=== PATIENT | male | born 1955 | race Caucasian/White ===

== ENCOUNTER 2018-09-21 09:28 | Outpatient (CLI) | payer BC ==
[2018-09-21 10:09] LABS: Anion Gap 13 mmol/L (10-20); BUN (Urea Nitrogen) 17 mg/dL (8.4-25.7); Calc. Creatinine Clearance 0 mL/min (70-130); Calcium 10.2 mg/dL (7.8-10.44); Carbon Dioxide 29 mmol/L (23-31); Chloride 103 mmol/L (98-107); Estimated GFR-MDRD 78; Glucose 78 mg/dL (80-115); Potassium 3.9 mmol/L (3.5-5.1); Sodium 141 mmol/L (136-145)
[2018-09-21 10:10] LABS: Hemoglobin 13.8 g/dL (14.0-18.0); Mean Corpuscular HGB CONC 35.3 g/dL (32.0-36.0); Mean Corpuscular Hemoglobin 29.6 pg (27.0-31.0); Mean Corpuscular Volume 83.9 fL (78.0-98.0); Mean Platelet Volume 8.5 fL (7.4-10.4); Platelet Count 225 thou/uL (130-400); RBC Distribution Width 11.3 % (11.5-14.5); Red Blood Cell (RBC) Count 4.67 mill/uL (4.70-6.10); White Blood Cell (WBC) Count 6.3 thou/uL (4.8-10.8)
== END 2018-09-21 09:29 | disposition home or self-care (01) ==
LOC: BUREKG 09:28
PROVIDERS: ATTEND Ophthalmology
DX: Z01.818 Encounter for other preprocedural examination (principal); H25.12 Age-related nuclear cataract, left eye
CPT/HCPCS: 36415; 80048; 85027; 93005; 93010

== ENCOUNTER 2020-10-20 06:21 | Emergency (ER) | payer BC, SELFPAY ==
[2020-10-20 07:01] LABS: #Basophils 0.1 thou/uL (0.0-0.2); #Eosinphils 0.4 thou/uL (0.0-0.7); #Lymphocytes 1.4 thou/uL (1.20-3.40); #Monocytes 0.6 thou/uL (0.11-0.59); #Neutrophils 10.4 thou/uL (1.40-6.50); %Basophils 0.7 % (0.0-1.0); %Eosinophils 2.8 % (0.0-10.0); %Lymphocytes 10.7 % (21.0-51.0); %Neutrophils 80.8 % (42.0-75.0); Hemoglobin 14.7 g/dL (14.0-18.0); Mean Corpuscular HGB CONC 33.9 g/dL (32.0-36.0); Mean Corpuscular Hemoglobin 30.2 pg (27.0-31.0); Mean Platelet Volume 8.6 fL (7.4-10.4); Platelet Count 210 thou/uL (130-400); RBC Distribution Width 11.4 % (11.5-14.5); Red Blood Cell (RBC) Count 4.85 mill/uL (4.70-6.10); White Blood Cell (WBC) Count 12.9 thou/uL (4.8-10.8)
[2020-10-20 07:15] LABS: ALT (SGPT) 16 U/L (8-55); AST (SGOT) 20 U/L (5-34); Albumin 4.4 g/dL (3.4-4.8); Alkaline Phosphatase 90 U/L (40-110); Anion Gap 17 mmol/L (10-20); BUN (Urea Nitrogen) 15 mg/dL (8.4-25.7); Bilirubin, Total 0.5 mg/dL (0.2-1.2); Calc. Creatinine Clearance 0 mL/min (70-130); Calcium 9.2 mg/dL (7.8-10.44); Carbon Dioxide 23 mmol/L (23-31); Chloride 103 mmol/L (98-107); Glucose 154 mg/dL (80-115); Potassium 3.2 mmol/L (3.5-5.1); Protein, Total 6.4 g/dL (5.8-8.1); Sodium 140 mmol/L (136-145)
[2020-10-20] MEDS ORDERED: Morphine 2 MG/ML VIAL ONE (07:23)
[2020-10-20] MEDS ORDERED: Morphine 4 MG/ML VIAL ONE (07:24)
[2020-10-20] MEDS ORDERED: Metoclopramide HCl 10 MG/2 ML VIAL ONE (07:24)
[2020-10-20] MEDS ORDERED: Ondansetron PF 4 MG/2 ML Vial ONE (09:00)
--- NOTE | 2020-10-20 09:35 | CT ---
CT ABDOMEN AND PELVIS WITHOUT CONTRAST: HISTORY: Nausea, vomiting, epigastric pain. COMPARISON: None. FINDINGS: Absence of oral and IV contrast reduces the sensitivity of the exam, particularly for evaluation of s olid organs involved. The lung bases are clear. The patient is post cholecystectomy. No free air or free fluid is seen in the abdomen or pelvis. A small hiatal hernia is present. The small bowel loops are not abnormally dilated. There is fecal material in the colon. No calculi are seen in the kidneys, ureters, or the urinary bladder. No hydroureteral nephrosis seen on either side. There is a 1 cm exophytic cyst arising from the superior pole of the left kidney. There is a solid-appearing partially exophytic 2 cm solid-appearing mass arising from the right renal cortex. The prostate is enlarged. There are vascular calcifications without evidence of aneurysmal dilatation of the abdominal aorta. There are degenerative changes in the spine. There is an 8 mm hypodense mass arising from the inferio r pole of the right kidney. IMPRESSION: 1. No CT evidence of urinary tract calculi or obstruction. 2. Left renal cyst. 3. Right-sided 2 cm solid-appearing adrenal mass. The possibility of malignancy should be considere d. Further evaluation with CT scan with IV contrast using the urography/adrenal mass protocol is rec ommended. 4. Indeterminate hyperdense 8 mm mass arising from the inferior pole of the right kidney. 5. Prostatic enlargement. 6. Constipation. 7. Small hiatal hernia. POS: [facility]
[2020-10-20 09:56] LABS: Lactic Acid 3.9 mmol/L (0.5-2.2)
[2020-10-20 09:59] LABS: Bilirubin Negative (Negative); Blood, Urine Negative (Negative); Clarity Slightly Cloudy (Clear); Glucose, Urine (Dipstick) Negative (Negative); Ketone, Urine Trace mg/dL (Negative); Leukocyte Negative (Negative); Nitrite Negative (Negative); Protein, Urine (Dipstick) Negative (Neg-Trace); pH, Urine 8.5 (5.0-9.0)
== END 2020-10-20 11:00 | disposition home or self-care (01) ==
LOC: BURERS 06:21
DX: K59.00 Constipation, unspecified (principal); D49.511 Neoplasm of unspecified behavior of right kidney
CPT/HCPCS: 36415; 74176; 80053; 81003; 83605; 83690; 84484; 85025; 93005; 96374; 96375; J2270; J2405; J2765

== ENCOUNTER 2021-01-25 08:56 | Outpatient (CLI) | payer MEDICARE | END 2021-01-25 08:57 | disposition home or self-care (01) | LOC: BURCT 08:56 | PROVIDERS: ATTEND Family Medicine | DX: N28.89 Other specified disorders of kidney and ureter (principal); N40.0 Benign prostatic hyperplasia without lower urinary tract symptoms; K59.00 Constipation, unspecified | CPT/HCPCS: 74177 ==

== ENCOUNTER 2022-06-03 10:17 | Outpatient (CLI) | payer MEDICARE | END 2022-06-03 10:18 | disposition home or self-care (01) | LOC: BURRAD 10:17 | PROVIDERS: ATTEND Family Medicine | DX: M54.50 Low back pain, unspecified (principal) | CPT/HCPCS: 72110; 72202 ==

== ENCOUNTER 2024-08-05 09:25 | Emergency (ER) | payer MEDICARE, OTHER ==
[2024-08-05] MEDS ORDERED: Ondansetron PF 4 MG/2 ML Vial ONE (09:45)
[2024-08-05] MEDS ORDERED: Ketorolac Tromethamine 30 MG (1 mL) VIAL ONE (09:45)
[2024-08-05] MEDS ORDERED: Pantoprazole 40 MG VIAL ONE (09:58)
[2024-08-05] MEDS ORDERED: Dicyclomine 20 MG TAB ONE (09:58)
[2024-08-05 10:07] LABS: Band 5 % (5-11); Eosinophils 1 % (0-10); Hematocrit 35.2 % (42.0-52.0); Hemoglobin 11.9 g/dL (14.0-18.0); Lymphocytes 2 % (21-51); MDiff Complete? YES; Mean Corpuscular HGB CONC 33.8 g/dL (32.0-36.0); Mean Corpuscular Hemoglobin 30.3 pg (27.0-31.0); Mean Corpuscular Volume 89.5 fl (78.0-98.0); Mean Platelet Volume 7.2 fL (7.4-10.4); Monocytes 1 % (0-10); Neutrophil 91 % (42-75); Platelet Adequacy Comment Appears Decreased; Platelet Count 104 10x3/uL (130-400); RBC Distribution Width 11.1 % (11.5-14.5); Red Blood Cell (RBC) Count 3.93 mill/uL (4.70-6.10); White Blood Cell (WBC) Count 4.2 10x3/uL (4.8-10.8)
[2024-08-05 10:12] LABS: ALT (SGPT) 37 U/L (8-55); AST (SGOT) 37 U/L (5-34); Albumin 3.6 g/dL (3.4-4.8); Alkaline Phosphatase 104 U/L (40-110); Anion Gap 11 mmol/L (10-20); BUN (Urea Nitrogen) 23 mg/dL (8.4-25.7); Bilirubin, Total 1.6 mg/dL (0.2-1.2); Calc. Creatinine Clearance 0 mL/min (70-130); Calcium 9.1 mg/dL (7.8-10.44); Carbon Dioxide 23 mmol/L (23-31); Chloride 105 mmol/L (98-107); Estimated GFR 45; Globulin 2.6 g/dL (2.4-3.5); Glucose 99 mg/dL (80-115); Lipase 119 U/L (8-78); Potassium 3.7 mmol/L (3.5-5.1); Protein, Total 6.2 g/dL (5.8-8.1); Sodium 135 mmol/L (136-145)
[2024-08-06 03:01] LABS: Campy jejuni + coli by PCR Negative (Negative); STEC Shiga Toxin 1+2 Negative (Negative); Salmonella spp. by PCR Negative (Negative); Shigella spp + EIEC by PCR Negative (Negative)
== END 2024-08-05 10:51 | disposition home or self-care (01) ==
LOC: BURERS 09:25
DX: A08.4 Viral intestinal infection, unspecified (principal); K85.90 Acute pancreatitis without necrosis or infection, unspecified
CPT/HCPCS: 80053; 83690; 85025; 87505; 96361; 96374; 96375; J1885; J2405; J2470

== ENCOUNTER 2025-09-12 19:46 | Emergency (ER) | payer MEDICARE, OTHER ==
[~2025-09-12 19:46] MED LIST: Iopamidol 370 76% 100 ML VIAL ONE
[2025-09-12 20:38] LABS: #Basophils 0.0 thou/uL (0.0-0.2); #Eosinophils 0.1 thou/uL (0.0-0.7); #Lymphocytes 1.1 thou/uL (1.20-3.40); #Monocytes 0.1 thou/uL (0.11-0.59); #Neutrophils 5.1 thou/uL (1.40-6.50); %Basophils 0.7 % (0.0-1.0); %Eosinophils 1.2 % (0.0-10.0); %Lymphocytes 17.6 % (21.0-51.0); %Monocytes 1.1 % (0.0-10.0); %Neutrophils 79.5 % (42.0-75.0); Hematocrit 38.0 % (42.0-52.0); Hemoglobin 12.6 g/dL (14.0-18.0); Mean Corpuscular Hemoglobin 30.1 pg (27.0-31.0); Mean Corpuscular Volume 91.2 fl (78.0-98.0); Platelet Count 130 10x3/uL (130-400); Red Blood Cell (RBC) Count 4.17 mill/uL (4.70-6.10); White Blood Cell (WBC) Count 6.4 10x3/uL (4.8-10.8)
[2025-09-12 20:51] LABS: ALT (SGPT) 15 U/L (Less than 45); AST (SGOT) 22 U/L (11-34); Albumin 3.8 g/dL (3.1-4.5); Alkaline Phosphatase 68 U/L (40-110); Anion Gap 17 mmol/L (10-20); BUN (Urea Nitrogen) 23 mg/dL (8.4-25.7); Bilirubin, Total 0.7 mg/dL (0.3-1.2); Calc. Creatinine Clearance 0 mL/min (70-130); Calcium 8.9 mg/dL (7.8-10.44); Carbon Dioxide 16 mmol/L (23-31); Chloride 107 mmol/L (98-107); Globulin 2.6 g/dL (2.4-3.5); Glucose 90 mg/dL (80-115); Potassium 3.7 mmol/L (3.5-5.1); Sodium 136 mmol/L (136-145)
[2025-09-12 22:32] LABS: Glucose, Urine (Dipstick) Negative (Negative); Leukocyte Negative (Negative); Protein, Urine (Dipstick) Negative (Neg-Trace); Specific Gravity, Urine 1.010 (1.005-1.030)
[2025-09-12 22:39] LABS: Bacteria/HPF Rare-Few HPF (None Seen); CAUTI Indications for Culture Pelvic or flank pain; RBC/HPF 0-3 HPF (0-3); WBC/HPF None Seen HPF (0-3)
[2025-09-12 22:40] LABS: Urine Culture Reflex No No
== END 2025-09-13 01:31 | disposition home or self-care (01) ==
LOC: BURERS 19:46
DX: K59.00 Constipation, unspecified (principal); E78.5 Hyperlipidemia, unspecified; K21.9 Gastro-esophageal reflux disease without esophagitis; Z79.82 Long term (current) use of aspirin; Z79.899 Other long term (current) drug therapy
CPT/HCPCS: 36415; 74177; 80053; 81001; 83605; 85025; Q9967

== ENCOUNTER 2025-09-15 11:21 | Emergency (ER) | payer MEDICARE, OTHER ==
[2025-09-15] MEDS ORDERED: Ketorolac Tromethamine 30 MG (1 mL) VIAL ONE (11:56)
[2025-09-15] MEDS ORDERED: Acetaminophen 500 MG TAB ONE (11:56)
== END 2025-09-15 12:48 | disposition home or self-care (01) ==
LOC: BURERS 11:21
DX: K59.00 Constipation, unspecified (principal); E78.00 Pure hypercholesterolemia, unspecified; Z79.82 Long term (current) use of aspirin; Z79.899 Other long term (current) drug therapy
CPT/HCPCS: 96372; 99283; J1885